=== PATIENT | male | born 1980 | race Caucasian/White ===

== ENCOUNTER 2017-10-28 13:56 | Inpatient (IN) ==
[~2017-10-28 13:56] MED LIST: *HR* LORazepam 2 MG/ML VIAL ONE; Haloperidol Lactate 5 MG/ML VIAL ONE
[2017-10-28] MEDS ORDERED: Haloperidol Lactate 5 MG/ML VIAL IM ONE (14:12)
[2017-10-28] MEDS ORDERED: *HR* LORazepam 2 MG/ML VIAL IM ONE (14:12)
[2017-10-28] MEDS ORDERED: 0.9 % Sodium Chloride 1,000 ML IVC ONE (14:14)
--- NOTE | 2017-10-28 14:16 | Emergency Department Note ---
Overdose - Lab Data Result diagrams: 10/28/17 14:14 10/28/17 14:14 Lab Results 10/28/17 10/28/17 Range/Units 14:14 14:14 WBC 15.5 H (4.3-11.1) K/mcL RBC 4.71 (4.19-5.50) M/mcL Hgb 13.2 (12.9-16.9) g/dL Hct 42.9 (37.5-50.1) % MCV 91.1 (83.0-100.0) fL MCH 28.0 (28.0-33.3) pg MCHC 30.8 L (31.6-35.5) g/dL RDW 12.7 (11.5-14.5) % Plt Count 489 H (140-400) K/mcL MPV 10.0 (9.4-12.4) fL Immature Gran % 0.3 (0-4) % Seg Neutrophils % 53.3 % Lymphocytes % 37.2 % Monocytes % 6.7 % Eosinophils % 1.9 % Basophils % 0.6 % Neutrophils # 8.3 (1.6-8.9) K/mcL Lymphocytes # 5.8 H (0.6-4.6) K/mcL Monocytes # 1.0 (0.0-1.3) K/mcL Eosinophils # 0.3 (0.0-0.6) K/mcL Basophils # 0.1 (0.0-0.2) K/mcL Sodium 137 (136-145) mEq/L Potassium 3.6 (3.5-5.1) mEq/L Chloride 100 (98-107) mEq/L Carbon Dioxide 16 L (23-29) mEq/L BUN 15 (6-20) mg/dL Creatinine 1.07 (0.70-1.30) mg/dL Est GFR ( Amer) > 60 (> 60) Est GFR (Non-Af Amer) > 60 (> 60) BUN/Creatinine Ratio 14 (6-26) Glucose 150 H (70-105) mg/dL Calculated Osmolality 288 (280-300) Calcium 9.1 (8.6-10.3) mg/dL Total Bilirubin 0.3 (0.3-1.0) mg/dL Direct Bilirubin 0.1 (0.0-0.2) mg/dL Indirect Bilirubin 0.2 (0.0-1.2) mg/dL AST 41 H (13-39) Units/L ALT 47 (7-52) Units/L Alkaline Phosphatase 82 (34-104) Units/L Serum Total Protein 8.0 (6.4-8.9) g/dL Albumin 4.2 (3.5-5.7) g/dL Globulin 3.8 H (2.4-3.5) g/dL Albumin/Globulin Ratio 1.1 (1.1-2.2) Salicylates < 2.5 L (15.0-30.0) mg/dL Acetaminophen < 10 L (10-20) mcg/mL Ethyl Alcohol < 10 (Less than 10) mg/dL Overdose HPI - General Chief Complaint: ED Overdose Stated Complaint: Overdose Time Seen by Provider: 10/28/17 14:04 Source: EMS Mode of arrival: EMS Limitations: other Nursing Notes Reviewed: Yes Vital Signs Reviewed: Yes - History of Present Illness HPI Narrative: Patient presents to the ED as an unknown overdose. Patient is a known heroin abuser and was found by EMS unresponsive and apneic. He was given 4 mg of intranasal and 2 mg of IV Narcan with complete reversal of his symptoms. Upon arrival to the emergency department. He is agitated, diaphoretic screaming. He is unable to provide any history whatsoever - Related Data Previous Rx's Medication Instructions Recorded Ketorolac [Toradol] 30 mg PO Q6HR #30 tablet 07/23/15 Ibuprofen [Motrin] 600 mg PO Q6HR PRN 7 Days tab 02/20/17 Oxycodone HCl/Acetaminophen 1 each PO Q6HR PRN #12 tablet 03/20/17 [Percocet 5-325 mg Tablet] Doxycycline 100 mg PO BID #20 capsule 05/27/17 Levofloxacin [Levaquin] 500 mg PO QDPC #10 tablet 05/27/17 Allergies Allergy/AdvReac Type Severity Reaction Status Date / Time No Known Allergies Allergy Verified 05/27/17 17:54 Limitations: ROS unobtainable due to patients medical condition Past Medical History - Past Medical History Source: old records reviewed Medical history: Reports: hepatitis, hyperlipidemia, hypertension Psychiatric history: Reports: no psych history - Social History Smoking Status: Current every day smoker Smokeless Tobacco Status: No Alcohol use: Reports: rarely Drug use: Reports: IV Drug Use Physical Exam - General Limitations: other General appearance: appears intoxicated, in distress, other - Head Head exam: other (Patient has abrasions to his lip and head , but is actively trying to spit at us, so unable to fully evaluate) - Eye Eye exam: Present: other (Patient's pupils are normal in size, but unable to test with light due to agitation) - ENT ENT exam: mucous membranes moist - Neck Neck exam: Absent: tenderness - Respiratory Respiratory exam: Present: normal lung sounds bilaterally - Cardiovascular Cardiovascular exam: Present: tachycardia - Abdominal Exam Abdominal exam: Present: soft - Extremities Exam Extremities exam: Present: full ROM, normal capillary refill. Absent: pedal edema - Back Exam Back exam: Absent: rashes - Neurological Exam Neurological exam: Absent: oriented X3 - Expanded Neurological Exam Patient oriented to: Absent: person, place, time Coma Scale Eye Opening: Spontaneous Coma Scale Motor Response: Localizes to Pain Coma Scale Verbal Response: Inappropriate Coma Scale Total: 12 - Psychiatric Psychiatric exam: Present: agitated, anxious - Skin Skin exam: Present: intact, normal color, diaphoresis. Absent: rash Course Course Narrative: Patient presenting with an unknown overdose. Is a known heroin abuser and did rapidly respond to Narcan. Patient was agitated, thrashing around and posing a threat to emergency department staff and patient's so we did decide to chemically and physically restrain the patient. He was placed in 4. leather restraints as well as given 50 mg Benadryl, 5 mg Haldol and 2 g of Ativan IM. We will order a tox screen, as well as a CT head and chest x-ray - Reevaluation(s) Reevaluation #1: CT head and chest x-ray normal. No acute abnormalities on lab. Patient is still not returned to any sort of baseline. We will admit him to the hospitalist service for observation until he is able to wake up and be safe for discharge. Vital Signs Temperature 99.4 F 10/28/17 13:57 Pulse Rate 109 10/28/17 13:57 Respiratory Rate 18 10/28/17 13:57 Blood Pressure 145/73 10/28/17 13:57 O2 Sat by Pulse Oximetry 93 10/28/17 13:57 Temperature 99.4 F 10/28/17 13:57 Pulse Rate 68 10/28/17 15:06 Respiratory Rate 16 10/28/17 15:06 Blood Pressure 98/54 10/28/17 15:06 O2 Sat by Pulse Oximetry 95 10/28/17 15:06 Oxygen Delivery Oxygen Delivery Room Air Critical Care Time Critical Care Time: Yes Total Critical Care Time: 30 Attestation: I personally spent ___30___ minutes devoted to the care of this critically ill patient. This time excludes the time for billable procedures. Disposition Clinical Impression: Drug overdose, multiple drugs, Altered mental status Disposition: Admitted As Inpatient Condition: Fair Referrals: NONE,PCP [Primary Care Provider] - Forms: ED Satisfaction Letter Time of Disposition: 15:42
[2017-10-28 14:36] LABS: Basophils # 0.1 K/mcL (0.0-0.2); Basophils % 0.6 %; Eosinophils # 0.3 K/mcL (0.0-0.6); Eosinophils % 1.9 %; Hematocrit 42.9 % (37.5-50.1); Hemoglobin 13.2 g/dL (12.9-16.9); Immature Granulocytes % 0.3 % (0-4); Lymphocytes # 5.8 K/mcL (0.6-4.6); Lymphocytes % 37.2 %; Mean Corpuscular HGB Conc 30.8 g/dL (31.6-35.5); Mean Corpuscular Volume 91.1 fL (83.0-100.0); Monocytes % 6.7 %; Neutrophils # 8.3 K/mcL (1.6-8.9); Platelet Count 489 K/mcL (140-400); Red Blood Count 4.71 M/mcL (4.19-5.50); Red Cell Distribution Width 12.7 % (11.5-14.5); Segmented Neutrophils % 53.3 %
[2017-10-28 14:56] LABS: Acetaminophen < 10 mcg/mL (10-20); Alanine Aminotransferase 47 Units/L (7-52); Albumin 4.2 g/dL (3.5-5.7); Albumin/Globulin Ratio 1.1 (1.1-2.2); Alkaline Phosphatase 82 Units/L (34-104); Aspartate Amino Transferase 41 Units/L (13-39); BUN/Creatinine Ratio 14 (6-26); Bilirubin,Direct 0.1 mg/dL (0.0-0.2); Bilirubin,Indirect 0.2 mg/dL (0.0-1.2); Bilirubin,Total 0.3 mg/dL (0.3-1.0); Blood Urea Nitrogen 15 mg/dL (6-20); Calcium 9.1 mg/dL (8.6-10.3); Carbon Dioxide 16 mEq/L (23-29); Chloride 100 mEq/L (98-107); Ethanol < 10 mg/dL (Less than 10); Globulin 3.8 g/dL (2.4-3.5); Glucose 150 mg/dL (70-105); Osmolality,Calculated 288 (280-300); Potassium 3.6 mEq/L (3.5-5.1); Salicylate < 2.5 mg/dL (15.0-30.0); Sodium 137 mEq/L (136-145); eGFR For African Americans > 60 (> 60); eGFR For Non-African Americans > 60 (> 60)
--- NOTE | 2017-10-28 17:04 | Emergency Department Note ---
Disposition Clinical Impression: Drug overdose, multiple drugs, Altered mental status Disposition: Admitted As Inpatient Condition: Fair General Adult HPI - General Chief complaint: ED Overdose Stated complaint: Overdose Time Seen by Provider: 10/28/17 14:04 Source: EMS Mode of arrival: EMS Limitations: other - History of Present Illness Pain Scale: 0 - Related Data Home Medications Medication Instructions Recorded Confirmed Unable To Obtain [Unable to Obtain] 10/28/17 10/28/17 Allergies Allergy/AdvReac Type Severity Reaction Status Date / Time No Known Allergies Allergy Verified 05/27/17 17:54 Past Medical History - Past Medical History Medical history: Reports: hepatitis, hyperlipidemia, hypertension Psychiatric history: Reports: no psych history - Social History Smoking Status: Current every day smoker Smokeless Tobacco Status: No Alcohol use: Reports: rarely Drug use: Reports: IV Drug Use Physical Exam - General Limitations: other General appearance: appears intoxicated, in distress, other Course Vital Signs Temperature 99.4 F 10/28/17 13:57 Pulse Rate 109 10/28/17 13:57 Respiratory Rate 18 10/28/17 13:57 Blood Pressure 145/73 10/28/17 13:57 O2 Sat by Pulse Oximetry 93 10/28/17 13:57 Temperature 98.1 F 10/28/17 16:58 Pulse Rate 74 10/28/17 16:58 Respiratory Rate 16 10/28/17 16:58 Blood Pressure 105/58 10/28/17 16:58 O2 Sat by Pulse Oximetry 97 10/28/17 16:58 Oxygen Delivery Oxygen Delivery Room Air Medical Decision Making - Lab Data Result diagrams: 10/28/17 14:14 10/28/17 14:14 Lab Results 10/28/17 10/28/17 10/28/17 Range/Units 14:14 14:14 15:15 WBC 15.5 H (4.3-11.1) K/mcL RBC 4.71 (4.19-5.50) M/mcL Hgb 13.2 (12.9-16.9) g/dL Hct 42.9 (37.5-50.1) % MCV 91.1 (83.0-100.0) fL MCH 28.0 (28.0-33.3) pg MCHC 30.8 L (31.6-35.5) g/dL RDW 12.7 (11.5-14.5) % Plt Count 489 H (140-400) K/mcL MPV 10.0 (9.4-12.4) fL Immature Gran % 0.3 (0-4) % Seg Neutrophils % 53.3 % Lymphocytes % 37.2 % Monocytes % 6.7 % Eosinophils % 1.9 % Basophils % 0.6 % Neutrophils # 8.3 (1.6-8.9) K/mcL Lymphocytes # 5.8 H (0.6-4.6) K/mcL Monocytes # 1.0 (0.0-1.3) K/mcL Eosinophils # 0.3 (0.0-0.6) K/mcL Basophils # 0.1 (0.0-0.2) K/mcL Sodium 137 (136-145) mEq/L Potassium 3.6 (3.5-5.1) mEq/L Chloride 100 (98-107) mEq/L Carbon Dioxide 16 L (23-29) mEq/L BUN 15 (6-20) mg/dL Creatinine 1.07 (0.70-1.30) mg/dL Est GFR ( Amer) > 60 (> 60) Est GFR (Non-Af Amer) > 60 (> 60) BUN/Creatinine Ratio 14 (6-26) Glucose 150 H (70-105) mg/dL Calculated Osmolality 288 (280-300) Lactic Acid 1.4 (0.5-2.2) mmol/L Calcium 9.1 (8.6-10.3) mg/dL Total Bilirubin 0.3 (0.3-1.0) mg/dL Direct Bilirubin 0.1 (0.0-0.2) mg/dL Indirect Bilirubin 0.2 (0.0-1.2) mg/dL AST 41 H (13-39) Units/L ALT 47 (7-52) Units/L Alkaline Phosphatase 82 (34-104) Units/L Serum Total Protein 8.0 (6.4-8.9) g/dL Albumin 4.2 (3.5-5.7) g/dL Globulin 3.8 H (2.4-3.5) g/dL Albumin/Globulin Ratio 1.1 (1.1-2.2) Salicylates < 2.5 L (15.0-30.0) mg/dL Acetaminophen < 10 L (10-20) mcg/mL Ethyl Alcohol < 10 (Less than 10) mg/dL Attestation Statement - Attestation Attestation: I examined this patient and my medical decision-making was reviewed with the Resident Physician, Dr. Cr. I agree with the documented findings, disposition and treatment plan as described except to the extent set forth below. Pt is a 37-year-old white male with a history of polysubstance abuse and known heroin abuser who is brought into us by EMS today for altered mental status. According to EMS he was found unresponsive at his residence and others who were with him called 911, he was administered Narcan with subsequent return of mentation and then became very agitated in route. On arrival he was requiring being physically restrained as he was significantly agitated and trying to throw himself off the cot. Patient was physically restrained and then also chemically restrained on arrival due to agitation. Patient appears to have sustained a closed head injury with soft tissue swelling and ecchymosis noted to the right brow area and resolved epistaxis from the naris. Patient is having no difficulty breathing, no dental or intraoral injuries were seen. I agree with patient's physical exam findings as documented. Following chemical sedation patient was easily arousable with loud voice but with slurred speech and not cooperative with questions. Patient underwent lab evaluation was continued on a monitoring and evaluation advisor and continuous pulse ox and physical restraints. Lab evaluation showed no significant metabolic derangement or anemia. CT imaging of the head was unremarkable for any injury to the head face or brow, chest x-ray was unremarkable. Serial exams on the patient he we were able to remove the physical restraints after period of time but he has not had significant improvement in his mental status. Patient will be admitted for ongoing observation and serial neuro exams. Case was discussed with hospitalist who accepted patient for admission.
[2017-10-28 18:01] LABS: Bilirubin,Urine Negative (Negative); Blood,Urine Negative (Negative); Clarity,Urine Clear (Clear); Color,Urine Yellow (Yellow); Glucose,Urine (UA) Normal (Normal); Ketones,Urine Negative (Negative); Leukocyte Esterase,Urine Negative (Negative); Nitrite,Urine Negative (Negative); Protein,Urine 30 mg/dL (Neg-Trace); Specific Gravity,Urine 1.024 (1.010-1.025); Urobilinogen,Urine Normal (Normal)
[2017-10-28] MEDS ORDERED: Acetaminophen 325 MG TABLET PO PRN (18:04)
[2017-10-28] MEDS ORDERED: Naloxone 0.4 MG/ML INJ IVP PRN (18:04)
[2017-10-28] MEDS ORDERED: Haloperidol Lactate 5 MG/ML VIAL IVP PRN (18:09)
[2017-10-28] MEDS ORDERED: *HR* LORazepam 2 MG/ML VIAL IVP PRN (18:11)
[2017-10-28 18:19] LABS: RBC,Urine 0-3 per hpf (0-3); WBC,Urine 0-3 per hpf (0-3)
[2017-10-28 18:20] LABS: Amphetamine Screen,Urine Positive ng/mL (Cutoff=1000); Barbiturate Screen,Urine Negative ng/mL (Cutoff=200); Benzodiazepines Screen,Urine Positive ng/mL (Cutoff=200); Cannabinoid Screen,Urine Positive ng/mL (Cutoff = 50); Cocaine Screen,Urine Negative ng/mL (Cutoff= 300); Opiate Screen,Urine Positive ng/mL (Cutoff=300); Phencyclidine Screen,Urine Negative ng/mL (Cutoff=25)
--- NOTE | 2017-10-28 20:05 | Internal Med History&Physical ---
<MarilynLogan - Last Filed: 10/28/17 21:01> Date of Encounter: 10/28/17 Time of Encounter: 16:30 Internal Medicine - H&P: HPI Chief complaint: Overdose Admitted From: Emergency Dept Plans for Post Hospital Care: Home History of present illness: Mr. Higuera is a 37 year old male w/PMH of hepatitis, HLD, and HTN presents from the ED with chief complaint of drug overdose of unknown substance. Patient is known heroin abuser and found unresponsive by EMS and apneic. Given 4 mg intranasal and 2 mg IV Narcan with current complete reversal of his symptoms. After arrival to ED, patient became agitated, diaphoretic, screening, and violent posing threats to himself and emergency department staff. Patient was chemically and physically restrained with 4. leather restraints as well as 50 mg Benadryl, 5 mg Haldol, and to milligram Ativan IM. Patient unable to give further information due to altered mental status. Urine tox screen ordered but was unable to be collected due to patient's agitated status, so drug(s) taken and intent for self-harm is unclear. Past Med Surg Social Fam HX - Past Medical History Source: old records reviewed Medical history: hepatitis, hyperlipidemia, hypertension Psychiatric history: no psych history - Social History Smoking Status: Current every day smoker Smokeless Tobacco Status: No Alcohol use: rarely Drug use: IV Drug Use, other (Heroin) Activity Level: Independent ambulation Internal Medicine - H&P: Meds Unable To Obtain [Unable to Obtain] 10/28/17 [History] 3 Allergy/AdvReac Type Severity Reaction Status Date / Time No Known Allergies Allergy Verified 05/27/17 17:54 ROS unobtainable: due to mental status All Systems PM: A 10-system review of systems was performed and is negative for pertinent findings except as documented above in the HPI. - Constitutional Vitals: Temp Pulse Resp BP Pulse Ox 98.8 F 71 17 111/59 96 10/28/17 19:13 10/28/17 19:13 10/28/17 19:13 10/28/17 19:13 10/28/17 19:13 General appearance: Present: A&O X 0, no acute distress (Pt. somnolent and hard to rouse. Protecting airway on exam.) - Head Head exam: Present: atraumatic, normal inspection - Eye Eye exam: Present: PERRL Pupils: Present: PERRL - ENT ENT exam: Present: normal exam - Neck Neck exam general surgery: Present: normal inspection - Respiratory Respiratory exam: Present: CTAB. Absent: accessory muscle use, rales, rhonchi, wheezes - Cardiovascular Cardiovascular exam: Present: tachycardia - GI/Abdominal GI/Abdominal exam: Present: normal bowel sounds, soft, no peritoneal signs. Absent: distended, tenderness - Rectal Rectal exam: Present: deferred - Additional comments: exam deferred. - Extremities Exam Extremities exam: Present: warm, radial pulses palpable and symmetrical. Absent : calf tenderness, cyanotic, pedal edema - Back Exam Back exam: Present: normal inspection - Neurological Exam Neurological exam: Present: altered - Skin Skin exam: Present: dry, intact Internal Med - H&P Results - Labs CBC & Chem 7: 10/28/17 14:14 10/28/17 14:14 Labs: Cardiac Enzymes 10/28/17 Range/Units 19:05 Troponin I < 0.03 (< 0.04) ng/mL Urine 10/28/17 Range/Units 17:45 Urine Color Yellow (Yellow) Urine Clarity Clear (Clear) Urine pH 6.0 (5.0-8.0) pH Units Ur Specific Kelford 1.024 (1.010-1.025) Urine Protein 30 H (Neg-Trace) mg/dL Urine Glucose (UA) Normal (Normal) mg/dL - Diagnostic Studies Chest x-ray Additional comments: Impressions Chest X-Ray 10/28/17 14:15 IMPRESSION: No acute process. D/ / Shay Laguna MD / Shay Laguna MD Interpreting Provider: Shay Laguna MD CT scan - head Additional comments: Impressions Head CT 10/28/17 14:15 IMPRESSION: No acute intracranial abnormality. D/ / Dario Weiner MD / Dario Weiner MD Interpreting Provider: Dario Weiner MD - Assessment and plan (1) Drug overdose Current Visit: Yes Status: Acute Assessment and plan: Acute drug overdose of unknown substance(s), quantities, duration, or intent for self-harm. Patient is known heroin abuser and found unresponsive by EMS and apneic. Given 4 mg intranasal and 2 mg IV Narcan with current complete reversal of his symptoms. After arrival to ED, patient became agitated, diaphoretic, screening, and violent posing threats to himself and emergency department staff. Patient was chemically and physically restrained with 4. leather restraints as well as 50 mg Benadryl, 5 mg Haldol, and to milligram Ativan IM. Pt. somnolent but protecting airway. Continuous cardiac telemetry. Supplemental O2 with titration and SPO2 monitoring. Nothing by mouth. Vital signs every 2 hours. Haldol 1 mg IVP every 4 hours for anxiety. Ativan 2 mg IVP every 6 hours when necessary for agitation. Bedside swallow evaluation when mentation improves. Order for 4. restraints when necessary placed in ED due to combative and violent outbursts. To indication to place mask on patient if he begins spitting blood again as previously in ED d/t hepatitis C status. Unknown intent of self-harm, psychiatric consult ordered and placed with 1A. Patient discussed with Dr. Russell who agrees with plan of care. Patient is high risk for further morbidity due to current drug overdose of unknown substances and quantity, history, and risk factors. Inpatient Qualifiers: Encounter type: initial encounter Injury intent: undetermined intent Qualified Code(s): T50.904A - Poisoning by unspecified drugs, medicaments and biological substances, undetermined, initial encounter (2) Altered mental status Current Visit: Yes Status: Acute Assessment and plan: Acute AMS following chemical restraint in ED. 1 mg. Haldol IVP ordered Q4HR PRN for anxiety. Ativan 2 mg IVP every 6 hours when necessary for agitation. Order for 4. restraints when necessary placed in ED. Patient has been pink slipped as of 10/28/17 at 17:27. Drug overdose of unknown substance(s) and etiology/ intent for self-harm. Psychiatric consult ordered and discussed w/!A who will pt. when AMS resolves. Awaiting results of ordered urine tox screen to assess which drugs were taken. VS Q2HR. Continuous cardiac telemetry. Supplemental O2 w /titration and SpO2 monitoring. Sitter. Suicide precautions. Qualifiers: Altered mental status type: somnolence Qualified Code(s): R40.0 - Somnolence (3) HTN (hypertension) Current Visit: Yes Status: Chronic Assessment and plan: Hx of HTN according to medical records. No medication verification available. Monitor pt. and VS. Add hydralazine 10 mg IVP Q6HR PRN if pt. becomes hypertensive w/parameters SBP >180 and/or DBP >110. Qualifiers: Hypertension type: essential hypertension Qualified Code(s): I10 - Essential (primary) hypertension (4) HLD (hyperlipidemia) Current Visit: Yes Status: Chronic Assessment and plan: Hx of HLD according to medical records. No medication verification available. Lipid panel in a.m. labs. Will add Lipitor if warranted by lipid panel results. Qualifiers: Hyperlipidemia type: pure hypercholesterolemia Qualified Code(s): E78.00 - Pure hypercholesterolemia, unspecified; E78.0 - Pure hypercholesterolemia (5) Hepatitis C carrier Current Visit: Yes Status: Chronic Assessment and plan: Hx of hepatitis C. Pt. spitting blood on ED personnel when agitated following Narcan. Hepatitis C precautions to be followed by personnel. Communication order to apply ordered 4-point restraints and mask to pt. if he begins spitting on staff. (6) DVT prophylaxis Current Visit: Yes Status: Acute Assessment and plan: Bilateral SCDs on pts. LEs for DVT prophylaxis. - Time Spent With Patient Total time spent is greater than 50% in coordination of care (as documented) at patient's floor/unit and/or counseling patient: 25 - 35 minutes <Kaylene Russell - Last Filed: 10/28/17 21:24> Date of Encounter: 10/28/17 Internal Medicine - H&P: HPI History of present illness: Mr. Higuera is a 37 year old male All Systems PM: A 10-system review of systems was performed and is negative for pertinent findings except as documented above in the HPI. - Constitutional Vitals: Temp Pulse Resp BP Pulse Ox 98.8 F 71 17 111/59 96 10/28/17 19:13 10/28/17 19:13 10/28/17 19:13 10/28/17 19:13 10/28/17 19:13 Internal Med - H&P Results - Labs CBC & Chem 7: 10/28/17 14:14 10/28/17 14:14 Labs: Cardiac Enzymes 10/28/17 Range/Units 19:05 Troponin I < 0.03 (< 0.04) ng/mL Urine 10/28/17 Range/Units 17:45 Urine Color Yellow (Yellow) Urine Clarity Clear (Clear) Urine pH 6.0 (5.0-8.0) pH Units Ur Specific Kelford 1.024 (1.010-1.025) Urine Protein 30 H (Neg-Trace) mg/dL Urine Glucose (UA) Normal (Normal) mg/dL - Attending Attestation Patient is examined, reviewed the note and agreed with plan of care. Patient has chronic drug abuser and had passed admission in the hospital for drug overdose. CT head negative. No focal neurological deficit. At present patient is sleepy as under the effect of sedating medication given in the ER. Urine drug screen report revealed with positive marijuana, opiate, benzodiazepine and amphetamine. Keep patient in telemetry with close monitoring , nothing by mouth, IV fluid, supportive treatment. Consulted inpatient psychiatric service. - Assessment and plan (1) Altered mental status Current Visit: Yes Status: Acute Qualifiers: Altered mental status type: somnolence Qualified Code(s): R40.0 - Somnolence (2) Hepatitis C carrier Current Visit: Yes Status: Chronic (3) Drug overdose Current Visit: Yes Status: Acute Qualifiers: Encounter type: initial encounter Injury intent: undetermined intent Qualified Code(s): T50.904A - Poisoning by unspecified drugs, medicaments and biological substances, undetermined, initial encounter (4) HTN (hypertension) Current Visit: Yes Status: Chronic Qualifiers: Hypertension type: essential hypertension Qualified Code(s): I10 - Essential (primary) hypertension (5) HLD (hyperlipidemia) Current Visit: Yes Status: Chronic Qualifiers: Hyperlipidemia type: pure hypercholesterolemia Qualified Code(s): E78.00 - Pure hypercholesterolemia, unspecified; E78.0 - Pure hypercholesterolemia (6) DVT prophylaxis Current Visit: Yes Status: Acute - Time Spent With Patient Total time spent is greater than 50% in coordination of care (as documented) at patient's floor/unit and/or counseling patient:
[2017-10-28] MEDS: 0.9 % Sodium Chloride 1,000 ML IVC SCH (20:24)
[2017-10-29 01:34] LABS: INR 1.1; Prothrombin Time 11.8 Seconds (9.4-12.1)
[2017-10-29 01:37] LABS: Activated Partial Thrombo Time 29.9 Seconds (26.0-36.0)
[2017-10-29 01:50] LABS: Alanine Aminotransferase 38 Units/L (7-52); Albumin 3.4 g/dL (3.5-5.7); Albumin/Globulin Ratio 1.2 (1.1-2.2); Alkaline Phosphatase 71 Units/L (34-104); Aspartate Amino Transferase 43 Units/L (13-39); BUN/Creatinine Ratio 17 (6-26); Bilirubin,Total 0.4 mg/dL (0.3-1.0); Blood Urea Nitrogen 13 mg/dL (6-20); Calcium 8.6 mg/dL (8.6-10.3); Carbon Dioxide 25 mEq/L (23-29); Chloride 107 mEq/L (98-107); Chol/HDL Ratio 4.1 (0-4.9); Cholesterol 155 mg/dL (< 200); Globulin 2.8 g/dL (2.4-3.5); Glucose 81 mg/dL (70-105); HDL Cholesterol 38 mg/dL (40-59); LDL Cholesterol,Calculated 104 mg/dL (0-99); Magnesium 2.1 mg/dL (1.6-2.6); Osmolality,Calculated 285 (280-300); Potassium 3.9 mEq/L (3.5-5.1); Sodium 138 mEq/L (136-145); Total Protein 6.2 g/dL (6.4-8.9); Triglycerides 66 mg/dL (< 150); eGFR For African Americans > 60 (> 60); eGFR For Non-African Americans > 60 (> 60)
[2017-10-29 03:17] LABS: Basophils # 0.1 K/mcL (0.0-0.2); Basophils % 0.6 %; Eosinophils # 0.1 K/mcL (0.0-0.6); Eosinophils % 1.3 %; Hematocrit 34.7 % (37.5-50.1); Hemoglobin 11.7 g/dL (12.9-16.9); Immature Granulocytes % 0.3 % (0-4); Lymphocytes # 3.6 K/mcL (0.6-4.6); Lymphocytes % 32.9 %; Mean Corpuscular HGB Conc 33.7 g/dL (31.6-35.5); Mean Corpuscular Hemoglobin 28.3 pg (28.0-33.3); Mean Corpuscular Volume 83.8 fL (83.0-100.0); Mean Platelet Volume 10.6 fL (9.4-12.4); Monocytes # 0.8 K/mcL (0.0-1.3); Monocytes % 7.1 %; Neutrophils # 6.3 K/mcL (1.6-8.9); Platelet Count 334 K/mcL (140-400); Red Blood Count 4.14 M/mcL (4.19-5.50); Red Cell Distribution Width 12.7 % (11.5-14.5); Segmented Neutrophils % 57.8 %
[2017-10-29] MEDS: 0.9 % Sodium Chloride 1,000 ML IVC SCH (04:44)
[2017-10-29] MEDS ORDERED: Pantoprazole 40 MG VIAL IVP SCH (09:00)
--- NOTE | 2017-10-29 14:48 | Consult Note ---
Date of Encounter: 10/29/17 Time of Encounter: 13:00 Assessment & Recommendation (1) Opioid abuse Current visit: Yes Status: Chronic Assessment & Recommendation: patient refused rehab (2) Polysubstance (excluding opioids) dependence Current visit: Yes Status: Chronic History of Present Illness Patient: new to practice Requesting Physician: Tremayne Gambino Reason for consult: drug overdose History of present illness: Mr. Higuera is a 37 year old male was consulted today for drug overdose. Patient with h/o substance use , came in with overdose of heroin , was agitated and violent in ED and was medically restrained. At present states has been using iv heroin and i just did it too much , i did not want to hurt myself, denies any psychiatric treatment, states has been sober for 6 months and relapsed 2 days ago bc was stressed, he has used xanax bought from street 1 week ago. denies any other drugs , although drug screen positive for others He was in rehab last year , no psych inpatient. at present denies any depression, psychosis or ligia , no si/no hi. past psych none Family : denies any Social hx he is single, lives with mother and his 18 yr old lives with them. 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 a/o Opioid use disorder bezodiazepine use disorder A/p patient did not OD intentionally , he is not danger to self/others at present He declined rehab referal. Thank you for consult and involving inhis care. CC: Tremayne Gambino Past Med Surg Social Fam HX - Past Medical History Medical history: hepatitis, hyperlipidemia, hypertension - Past Psychiatric History Psychiatric history: Reports: no psych history Family psychiatric history: No Family History of Suicide: None - Social History Smoking Status: Current every day smoker Smokeless Tobacco Status: No Alcohol use: rarely Drug use: IV Drug Use, other (Heroin) Medications & Allergies Unable To Obtain [Unable to Obtain] 10/28/17 [History] 3 Allergy/AdvReac Type Severity Reaction Status Date / Time No Known Allergies Allergy Verified 05/27/17 17:54 Psychiatry Exam - Constitutional Vitals: Temp Pulse Resp BP Pulse Ox 98.8 F 66 16 123/69 97 10/29/17 07:50 10/29/17 07:50 10/29/17 07:50 10/29/17 07:50 10/29/17 07:50 General appearance: age & developmentally appropriate, well-groomed, well- nourished - Musculoskeletal Station: relaxed Strength & Tone: normal for patient - Psychiatric Patient Orientation: Yes Person, Yes Time, Yes Place Level of alertness: Alert Behavior: calm, cooperative Psychomotor activity: Normal Eye Contact: Maintains Eye Contact Mood Description: Euthymic/stable Affect description: congruent with mood, full range Speech Volume: Normal Speech pattern: normal rate, normal rhythm, normal tone, fluent, spontaneous Language & Vocabulary: consistent with education Thought Process: Linear, Goal Oriented Thought Content: Yes Intact Perceptual Disturbances: No Auditory hallucinations, No Visual hallucinations Attention Span Ability: Capable of Focused Attention Memory Description: Grossly Intact Patient Reliability: Reliable Historian Fund of knowledge: Yes abstraction ability, Yes aware of current events Intelligence Estimate: Average Judgment: Fair Insight: Minimal Results - Labs Labs: Laboratory Last Values WBC 10.9 K/mcL (4.3-11.1) 10/29/17 02:35 RBC 4.14 M/mcL (4.19-5.50) L 10/29/17 02:35 Hgb 11.7 g/dL (12.9-16.9) L D 10/29/17 02:35 Hct 34.7 % (37.5-50.1) L 10/29/17 02:35 MCV 83.8 fL (83.0-100.0) D 10/29/17 02:35 MCH 28.3 pg (28.0-33.3) 10/29/17 02:35 MCHC 33.7 g/dL (31.6-35.5) 10/29/17 02:35 RDW 12.7 % (11.5-14.5) 10/29/17 02:35 Plt Count 334 K/mcL (140-400) 10/29/17 02:35 MPV 10.6 fL (9.4-12.4) 10/29/17 02:35 Immature Gran % 0.3 % (0-4) 10/29/17 02:35 Seg Neutrophils % 57.8 % 10/29/17 02:35 Lymphocytes % 32.9 % 10/29/17 02:35 Monocytes % 7.1 % 10/29/17 02:35 Eosinophils % 1.3 % 10/29/17 02:35 Basophils % 0.6 % 10/29/17 02:35 Neutrophils # 6.3 K/mcL (1.6-8.9) 10/29/17 02:35 Lymphocytes # 3.6 K/mcL (0.6-4.6) 10/29/17 02:35 Monocytes # 0.8 K/mcL (0.0-1.3) 10/29/17 02:35 Eosinophils # 0.1 K/mcL (0.0-0.6) 10/29/17 02:35 Basophils # 0.1 K/mcL (0.0-0.2) 10/29/17 02:35 PT 11.8 Seconds (9.4-12.1) 10/29/17 00:45 INR 1.1 10/29/17 00:45 APTT 29.9 Seconds (26.0-36.0) 10/29/17 00:45 Sodium 138 mEq/L (136-145) 10/29/17 00:45 Potassium 3.9 mEq/L (3.5-5.1) 10/29/17 00:45 Chloride 107 mEq/L (98-107) 10/29/17 00:45 Carbon Dioxide 25 mEq/L (23-29) 10/29/17 00:45 BUN 13 mg/dL (6-20) 10/29/17 00:45 Creatinine 0.76 mg/dL (0.70-1.30) 10/29/17 00:45 Est GFR ( Amer) > 60 (> 60) 10/29/17 00:45 Est GFR (Non-Af Amer) > 60 (> 60) 10/29/17 00:45 BUN/Creatinine Ratio 17 (6-26) 10/29/17 00:45 Glucose 81 mg/dL (70-105) 10/29/17 00:45 Calculated Osmolality 285 (280-300) 10/29/17 00:45 Lactic Acid 1.4 mmol/L (0.5-2.2) 10/28/17 15:15 Calcium 8.6 mg/dL (8.6-10.3) 10/29/17 00:45 Magnesium 2.1 mg/dL (1.6-2.6) 10/29/17 00:45 Total Bilirubin 0.4 mg/dL (0.3-1.0) 10/29/17 00:45 Direct Bilirubin 0.1 mg/dL (0.0-0.2) 10/28/17 14:14 Indirect Bilirubin 0.2 mg/dL (0.0-1.2) 10/28/17 14:14 AST 43 Units/L (13-39) H 10/29/17 00:45 ALT 38 Units/L (7-52) 10/29/17 00:45 Alkaline Phosphatase 71 Units/L (34-104) 10/29/17 00:45 Troponin I < 0.03 ng/mL (< 0.04) 10/29/17 06:22 Serum Total Protein 6.2 g/dL (6.4-8.9) L 10/29/17 00:45 Albumin 3.4 g/dL (3.5-5.7) L 10/29/17 00:45 Globulin 2.8 g/dL (2.4-3.5) 10/29/17 00:45 Albumin/Globulin Ratio 1.2 (1.1-2.2) 10/29/17 00:45 Triglycerides 66 mg/dL (< 150) 10/29/17 00:45 Cholesterol 155 mg/dL (< 200) 10/29/17 00:45 LDL Cholesterol, Calc 104 mg/dL (0-99) H 10/29/17 00:45 VLDL Cholesterol, Calc 13 mg/dL (< 31) 10/29/17 00:45 HDL Cholesterol 38 mg/dL (40-59) L 10/29/17 00:45 Cholesterol/HDL Ratio 4.1 (0-4.9) 10/29/17 00:45 Urine Color Yellow (Yellow) 10/28/17 17:45 Urine Clarity Clear (Clear) 10/28/17 17:45 Urine pH 6.0 pH Units (5.0-8.0) 10/28/17 17:45 Ur Specific [place] 1.024 (1.010-1.025) 10/28/17 17:45 Urine Protein 30 mg/dL (Neg-Trace) H 10/28/17 17:45 Urine Glucose (UA) Normal mg/dL (Normal) 10/28/17 17:45 Urine Ketones Negative mg/dL (Negative) 10/28/17 17:45 Urine Blood Negative (Negative) 10/28/17 17:45 Urine Nitrite Negative (Negative) 10/28/17 17:45 Urine Bilirubin Negative (Negative) 10/28/17 17:45 Urine Urobilinogen Normal mg/dL (Normal) 10/28/17 17:45 Ur Leukocyte Esterase Negative (Negative) 10/28/17 17:45 Urine Microscopic RBC 0-3 per hpf (0-3) 10/28/17 17:45 Urine Microscopic WBC 0-3 per hpf (0-3) 10/28/17 17:45 Salicylates < 2.5 mg/dL (15.0-30.0) L 10/28/17 14:14 Urine Opiates Screen Positive ng/mL (Xbrepn=079) H 10/28/17 17:45 Acetaminophen < 10 mcg/mL (10-20) L 10/28/17 14:14 Ur Barbiturates Screen Negative ng/mL (Mghwpj=964) 10/28/17 17:45 Ur Phencyclidine Scrn Negative ng/mL (Cutoff=25) 10/28/17 17:45 Ur Amphetamines Screen Positive ng/mL (Housvv=3360) H 10/28/17 17:45 U Benzodiazepines Scrn Positive ng/mL (Dushko=020) H 10/28/17 17:45 Urine Cocaine Screen Negative ng/mL (Cutoff= 300) 10/28/17 17:45 U Marijuana (THC) Screen Positive ng/mL (Cutoff = 50) H 10/28/17 17:45 Ethyl Alcohol < 10 mg/dL (Less than 10) 10/28/17 14:14 Specimen Rejected MCV Delta 10/29/17 00:45 Consult Discharge Plan - Plan Referrals: NONE,PCP [Primary Care Provider] -
[2017-10-29 14:52] VITALS: BP 147/73
--- NOTE | 2017-10-29 16:51 | Discharge Summary ---
- NOTES TO OUTPATIENT PROVIDER Notes to Outpatient Provider: Pt left AMA Date of Encounter: 10/29/17 Time of Encounter: 10:30 - Discharge Diagnosis (1) Altered mental status Priority: Primary Status: Acute Assessment and Plan: REsovled. Qualifiers: Altered mental status type: somnolence Qualified Code(s): R40.0 - Somnolence (2) Hepatitis C carrier Priority: Secondary Status: Chronic Assessment and Plan: Chronic. Follow with PCP. (3) Drug overdose Priority: Secondary Status: Acute Assessment and Plan: Pt brought to ED after being found unresponsive, apneic by EMS. Pt was given Narcan with reversal of his symptoms. Pt is known heroin user and admitted to using today. Pt was unable to answer questions so he was pink slipped and monitored by a sitter until he was evaluated by psychiatry and cleared. Pt left AMA. Qualifiers: Encounter type: initial encounter Injury intent: undetermined intent Qualified Code(s): T50.904A - Poisoning by unspecified drugs, medicaments and biological substances, undetermined, initial encounter (4) HTN (hypertension) Priority: Secondary Status: Chronic Assessment and Plan: Chronic. Qualifiers: Hypertension type: essential hypertension Qualified Code(s): I10 - Essential (primary) hypertension (5) HLD (hyperlipidemia) Priority: Secondary Status: Chronic Assessment and Plan: Chronic. Qualifiers: Hyperlipidemia type: pure hypercholesterolemia Qualified Code(s): E78.00 - Pure hypercholesterolemia, unspecified; E78.0 - Pure hypercholesterolemia (6) DVT prophylaxis Priority: Secondary Status: Acute Assessment and Plan: Bilateral SCDs ordered. Hospital course: Mr. Higuera is a 37 year old male who presented to the ED after being found unresponsive, symptoms resolved after being given Narcan. Pt was admitted for mental health evaluation. He was cleared by psychiatry and was encouraged by some law enforcement staff to sign out AMA. He was arrested prior to leaving AMA. I did not get a chance to medically clear him or speak to him prior to this turn of events. - Time Spent with Patient Total time spent providing and/or coordinating discharge services: Less than 30 minutes - Discharge Medications Home Medications: Unable To Obtain [Unable to Obtain] 10/28/17 [History] Allergies/Adverse Reactions: 3 Allergy/AdvReac Type Severity Reaction Status Date / Time No Known Allergies Allergy Verified 05/27/17 17:54 Date of admission: 10/29/17 10:10 Primary care physician: PCP NONE Discharging clinician: Rosie Young Anticipated date of discharge: 10/29/17 - Constitutional Vitals: Temp Pulse Resp BP Pulse Ox 98.0 F 73 16 147/73 96 10/29/17 14:51 10/29/17 14:51 10/29/17 14:51 10/29/17 14:51 10/29/17 14:51 General appearance: Present: A&O X 3, pleasant, no acute distress (Pt. somnolent and hard to rouse. Protecting airway on exam.), answers questions appropriately - Head Head exam: Present: atraumatic, normal inspection, normocephalic - Eye Eye exam: Present: normal appearance, conjuntiva pink, sclera anicteric - Neck Neck exam general surgery: Present: normal inspection, supple, trachea midline. Absent: lymphadenopathy - Respiratory Respiratory exam: Present: CTAB. Absent: accessory muscle use, decreased breath sounds, rales, respiratory distress, rhonchi, wheezes - Cardiovascular Cardiovascular exam: Present: RRR, +S1, +S2. Absent: diastolic murmur, gallop, rubs, systolic murmur - GI/Abdominal GI/Abdominal exam: Present: normal bowel sounds, soft. Absent: distended, hepatomegaly, tenderness - Extremities Exam Extremities exam: Present: normal capillary refill, normal inspection, warm, radial pulses palpable and symmetrical. Absent: calf tenderness, cyanotic, pedal edema - Neurological Exam Neurological exam: Present: alert, oriented X3, no focal deficits. Absent: facial droop, speech deficit - Skin Skin exam: Present: dry, intact, normal color, warm. Absent: rash - Patient Status Disposition: Left Against Medical Advice Condition: Good Functional capacity at discharge: independent ambulation Overall status at discharge: patient is back to baseline - Discharge Instructions Follow Up With: NONE,PCP [Primary Care Provider] - - VTE Documentation of Mechanical Device: Intermittent pneumatic compression device
--- NOTE | 2017-10-29 19:29 | Electrocardiograph Report ---
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
== END 2017-10-29 15:07 | disposition left against medical advice (07) | DRG 816 ==
LOC: 3BNU 13:56 → EMEROO 13:56 → 3BNU 17:20
PROVIDERS: ADMIT Student in an Organized Health Care Education/Training Program; ATTEND Student in an Organized Health Care Education/Training Program